=== PATIENT | female | born 1995 | race African-American/Black ===

== ENCOUNTER 2023-05-14 12:21 | Emergency (ER) | payer OTHER, SELFPAY ==
[2023-05-14 12:33] VITALS: BP 118/65
[2023-05-14 13:04] LABS: % Basophils 0.3 % (0-2); % Eosinophils 0.3 % (0-6); % Immature Granulocytes 0.5 % (0-0.5); % Lymphocytes 3.3 % (20.5-51.1); % Monocytes 7.3 % (1.7-9.3); % Neutrophils 88.3 % (42.2-75.2); Absolute Basophils 0.1 10^3/uL (0-0.2); Absolute Eosinophils 0.1 10^3/uL (0-0.7); Absolute Immature Granulocytes 0.1 10^3/uL (0-0.05); Absolute Lymphocytes 0.7 10^3/uL (1.2-3.4); Absolute Monocytes 1.5 10^3/uL (0.1-0.6); Absolute Neutrophils 18.5 10^3/uL (1.4-6.5); Hematocrit 36.6 % (37.0-47.0); Hemoglobin 12.9 g/dL (12.0-16.0); Mean Corp Hgb Conc. 35.2 g/dL (33.0-37.0); Mean Corpuscular Hgb 31.7 pg (27.0-31.0); Mean Corpuscular Volume 89.9 fL (81.0-99.0); Mean Platelet Volume 8.3 fL (7.4-10.4); Nucleated Red Blood Cells % 0 %; Platelet Count 332 10^3/uL (130-400); Red Blood Cell Count 4.07 10^6/uL (4.20-5.40); Red Cell Dist. Width 12.5 % (11.5-14.5)
[2023-05-14 13:09] LABS: HCG, Serum Qualitative Screen Negative
[2023-05-14 13:20] LABS: ALT (SGPT) 10 U/L (0-35); AST (SGOT) 22 U/L (14-36); Albumin 4.5 g/dl (3.5-5.0); Alkaline Phosphatase 72 U/L (38-126); Blood Urea Nitrogen 15 mg/dl (7-17); Calcium 9.3 mg/dl (8.4-10.2); Carbon Dioxide 22 mmol/L (22-30); Chloride 104 mmol/L (98-107); Glucose 96 mg/dl (70-99); Potassium 4.1 mmol/L (3.5-5.1); Sodium 133 mmol/L (135-145); Total Bilirubin 0.6 mg/dl (0.2-1.3); Total Protein 7.6 g/dl (6.3-8.2); eGFR > 60.00
[2023-05-14 14:40] VITALS: BMI 26.2
[2023-05-14] MEDS: TYLENOL 1000 MG PO (14:46)
--- NOTE | 2023-05-14 15:47 | ED.GENMED ---
History of Present Illness
General
Chief Complaint: Throat Problem
Source: patient
Exam Limitations: none
Time Seen by Provider: 05/14/23 15:05
Nursing documentation reviewed up to this point in time: agreed with
Travel History
Have you had any contact with someone who has COVID-19?: No
Do you have any symptoms of coronavirus? Fever > 100 degrees, chills, cough, shortness of breath, sore throat, loss of taste or smell, muscle aches, or headache?: No
History of Present Illness
History of Present Illness:
27-year-old female past medical history of anxiety depression presenting to the emergency department today after being diagnosed with strep throat but additionally having lightheadedness nausea chills body aches while at the [facility] and was
sent to the ER for further assessment due to these additional symptoms. Strep test was positive there. Has been able to swallow denies any chest pain shortness of breath no upper respiratory symptoms otherwise.
Past History
Past History
ED Past Medical History: None
ED Past Surgical History: None
Social History
Tobacco: Vaping
Alcohol: Occasional
Personal: Single
Employment: Not employed
Review of Systems
Review of Systems
Allergies reviewed?: Yes
All Other Systems: ROS reviewed and negative except as documented in HPI and ROS
Phy Exam
Physical Exam
Physical Exam:
GENERAL: Alert , in no apparent distress
EYE: pupils equal and reactive
NECK: Supple, no significant adenopathy.
ENT: Swollen tonsils bilaterally, exudate bilaterally uvula midline grossly patent airway swollen anterior cervical lymphadenopathy o/p clr, mmm.
CARDIAC: Regular rate and rhythm .
LUNGS: Clear breath sounds bilaterally, no acute respiratory distress, no wheezes/rales/rhonchi
ABDOMEN: Soft, without focal tenderness, no r/g, no cvat
NEUROLOGICAL: Alert and oriented, no focal neuro deficits
SKIN: Warm and dry, skin intact.
MUSCULOSKELETAL: No edema, well perfused.
PSYCH: Normal and appropriate interaction.
Course
Orders/Labs/Results
Orders:
Orders
05/14/23 12:40
Test Result ONCE
05/14/23 12:48
CBC/With Diff [Complete Blood Count/With Diff] Urgent
CMP [Comprehensive Metabolic Panel] Urgent
HCG, Serum Qualitative Screen Urgent
05/14/23 14:44
Acetaminophen [Tylenol] 1,000 mg PO NOW STA
05/14/23 15:35
Dexamethasone Pf [Decadron] 10 mg PO NOW STA
Ondansetron Orally Disint [Zofran Odt (Orally Disintegrating)] 4 mg PO NOW STA
Penicillin V Potassium [Pen Vk] 500 mg PO NOW STA
Abnormal Lab Results
05/14/23
12:48
WBC 21.0 H 10^3/uL
(4.8-10.8)
RBC 4.07 L 10^6/uL
(4.20-5.40)
Hct 36.6 L %
(37.0-47.0)
MCH 31.7 H pg
(27.0-31.0)
Abs Immat Gran (auto) 0.1 H 10^3/uL
(0-0.05)
Absolute Neuts (auto) 18.5 H 10^3/uL
(1.4-6.5)
Absolute Lymphs (auto) 0.7 L 10^3/uL
(1.2-3.4)
Absolute Monos (auto) 1.5 H 10^3/uL
(0.1-0.6)
Neutrophils % 88.3 H %
(42.2-75.2)
Lymphocytes % 3.3 L %
(20.5-51.1)
Sodium 133 L mmol/L
(135-145)
05/14/23 12:48
05/14/23 12:48
Vital Signs
Initial and Last Documented VS:
Initial Vital Signs
Temp Pulse Resp BP Pulse Ox
100.8 F H 90 16 118/65 98
05/14/23 12:33 05/14/23 12:33 05/14/23 12:33 05/14/23 12:33 05/14/23 12:33
Last Documented Vital Signs
Temp Pulse Resp BP Pulse Ox
100.8 F H 90 16 118/65 98
05/14/23 12:33 05/14/23 12:33 05/14/23 12:33 05/14/23 12:33 05/14/23 12:33
MDM/Problems Addressed
MDM/Problems Addressed:
27-year-old female presenting to the emergency department today with concerns of strep throat does have additional symptoms was sent here from [facility]. Here patient febrile otherwise vital signs normal. Patient no obvious distress labs showing
elevated white count however this is likely secondary to patient's known strep throat. Otherwise labs unremarkable. Patient is able to tolerate by mouth in no distress. Plan for treatment with antibiotic steroid for symptoms but otherwise stable
for discharge return precautions given.
*Critical Care Note
Total Time (30-74mins, 75-104mins- exclusive of procedures): Not Applicable
ED Attending Note
-
Portions of this chart may have been created with voice recognition software.� Occasional wrong word or��sound alike� substitutions may have occurred due to the inherent limitations of voice recognition software.
Discharge Plan
Departure
Patient Disposition: Home (Routine Discharge)
Date of Disposition: 05/14/23
Time of Disposition: 15:47
Patient with high blood pressure during this ER visit?: No
Condition: Good
Covid-19: Not Applicable
Discharge Problem:
Strep throat
Instructions: Strep Throat (DC)
Prescriptions:
New
ondansetron 4 mg tablet,disintegrating
4 mg PO Q8H PRN (Reason: nausea and vomiting) 7 Days Qty: 7 0RF
penicillin V potassium 500 mg tablet
500 mg PO TID 7 Days Qty: 21 0RF
ibuprofen 600 mg tablet
600 mg PO TID PRN (Reason: Pain) Qty: 20 0RF
No Action
doxycycline hyclate 100 mg tablet
100 mg PO BID Qty: 20 0RF
Referrals:
Harvinder Mancia, [Family Provider] -
Activity Restrictions/Additional Instructions:
You came to the emergency department today with concerns of strep throat and additional symptoms. Here there is no evidence of any complications. Please take the penicillin 3 times daily for the next 7 days. He can also take Zofran to help with
nausea every 8 hours and ibuprofen 600 mg every 6 hours as needed for discomfort. Please stay hydrated and return to the emergency department for any worsening, new or concerning symptoms.
Interventions
Interventions:
*Risk Screen - Suicide Last Done: 05/14/23 12:33
*General Assessment Last Done: 05/14/23 12:33
*Neglect/Abuse Screening Last Done: 05/14/23 12:33
ED-EENT Assessment Last Done: 05/14/23 14:50
ED- Pulmonary Assessment Last Done: 05/14/23 14:50
[2023-05-14] MEDS: DECADRON 10 MG PO (15:49)
[2023-05-14] MEDS: PEN VK 500 MG PO (15:49)
[2023-05-14] MEDS: ZOFRAN ODT (ORALLY DISINTEGRATING) 4 MG PO (15:49)
== END 2023-05-14 16:00 | disposition home or self-care (01) ==
LOC: EMR 12:21
PROVIDERS: Emergency Medicine; EMERGENCY PHYSICIAN Emergency Medicine; FAMILY PHYSICIAN Family Medicine
DX: J02.0 Streptococcal pharyngitis (principal); R42 Dizziness and giddiness; F41.8 Other specified anxiety disorders; F17.290 Nicotine dependence, other tobacco product, uncomplicated
CPT/HCPCS: 99283; 80053; 84703; 85025